=== PATIENT | male | born 1960 | race Caucasian/White ===

== ENCOUNTER 2023-05-23 19:24 | Emergency (ER) | payer SELFPAY ==
[2023-05-23] VITALS (9 sets, daily range): BP systolic 99–177; BP diastolic 59–99; PULSE 3–67; RESP 14–20; TEMP 36.6; O2SAT 97–100
--- NOTE | 2023-05-23 19:37 | XR_ITS ---
The [address] [address] Patient Name: JEANNETTE MARTIN MRN: [id number] date: 1960 Sex: M Assigned Patient Location: ER Current Patient Location: ED.MAIN Accession/Order Number: [id number] Exam Date: 05/23/2023 19:40 Report Date: 05/23/2023 20:19 At the request of: ALLI PANTOJA Procedure: XR chest 1V EXAM: XR chest 1V HISTORY: . chest pain . COMPARISON: None. TECHNIQUE: Single view of the chest FINDINGS: Heart and vascularity are unremarkable. Lungs are free of focal infiltrates. EKG leads overlie the chest. XR/XR chest 1V IMPRESSION: No acute heart or lung disease identified. Electronically authenticated by: NIKOLAS NETTLES Date: 05/23/2023 20:19
--- NOTE | 2023-05-23 19:39 | ED.CHESTPAI1 ---
HPI - Chest Pain General Chief Complaint: Abdominal Pain Stated Complaint: UPPER ABDOMINAL PAIN, READIATING TO BACK Time Seen by Provider: 05/23/23 19:29 Source: patient Mode of arrival: walk-in Limitations: no limitations History of Present Illness HPI narrative: presents with acute onset of left lower anterior chest pain. Mild nausea. Pain into his back and he feels short of breath. Started about 2 hours ago. Nonsmoker. no diaphoresis. No past history of similar pains MD complaint: Reports chest pain Risk Factors Coronary artery disease risk factors: none Related Data Home Medications Medication Instructions Recorded Confirmed No Known Home Medications 05/23/23 05/23/23 Allergies Allergy/AdvReac Type Severity Reaction Status Date / Time No Known Drug Allergies Allergy Verified 05/23/23 19:37 Review of Systems ROS Status of ROS 10 or more systems reviewed and unremarkable except as noted in history and below [facility] Social History Smoking status: Never smoker Exam Constitutional Vital Signs, click to edit/add: Last Vital Signs Temp 97.9 F 05/23/23 19:27 Pulse 67 05/23/23 23:35 Resp 20 05/23/23 23:35 BP 99/59 05/23/23 23:35 Pulse Ox 98 05/23/23 23:35 O2 Del Method Room Air 05/23/23 23:35 Common normals: no apparent distress (mild distress from discomfort of his chest), oriented x3, healthy appearing, alert and well nourished Eye Common normals: PERRL, EOMs intact bilaterally and conjunctivae normal Chest Other: mild left chest wall tenderness Respiratory Common normals: normal respiratory effort, no retractions, no use of accessory muscles and clear to auscultation bilaterally Cardio Common normals: no JVD, regular rate, regular rhythm, S1 normal heart sound and S2 normal heart sound GI Common normals: Normal to inspection, nondistended, normoactive bowel sounds present, soft to palpation and non-tender Extremity Common normals: normal to inspection and full ROM Neuro Common normals: oriented x3, CN's II-XII intact bilaterally, moves all extremities, no focal motor deficits and no sensory deficits noted Psych Appearance: grossly normal Course Vital Signs Vital signs: Vital Signs Temperature 97.9 F 05/23/23 19:27 Pulse Rate 67 05/23/23 19:27 Respiratory Rate 16 05/23/23 19:27 Blood Pressure 177/97 H 05/23/23 19:27 Pulse Oximetry 100 05/23/23 19:27 Oxygen Delivery Method Room Air 05/23/23 19:27 Temperature 97.9 F 05/23/23 19:27 Pulse Rate 67 05/23/23 23:35 Respiratory Rate 20 05/23/23 23:35 Blood Pressure 99/59 05/23/23 23:35 Pulse Oximetry 98 05/23/23 23:35 Oxygen Delivery Method Room Air 05/23/23 23:35 MDM - Chest Pain MDM Narrative Medical decision making narrative: patient presents with acute onset of pain epigastric, lower left anterior rib cage, pain into right back associated with nausea and a sensation that he can't take a full breath. Mild epigastric tenderness. No guarding. pain did not improve with nitroglycerin. EKG normal without acute changes. Serial troponin neg. mild elevation of alk phos and lipase. CT with 15mm stone at gallbladder neck and also finding of 13mm cystic lesion in the pancreas. Discussed with monitor and storage bin tender Surgeon Dr Sellers who feels the patient can be follow up with as an out patient particularly now that he is nearly pain free. Maybe 07/22. He is discharged home and given name of GI for followup. He is to return if pain recurs Lab Data Labs: Lab Results 05/23/23 05/23/23 Range/Units 19:35 23:25 WBC 8.3 (4.0-11.0) 10^3/uL RBC 4.85 (4.70-6.10) 10^6/uL Hgb 14.9 (14.0-18.0) g/dL Hct 44.4 (42.0-54.0) % MCV 91.5 (80.0-94.0) fL MCH 30.7 (25.9-34.0) pg MCHC 33.6 (29.9-35.2) g/dL RDW 12.6 (11.0-15.0) % Plt Count 218 (150-450) 10^3/uL MPV 10.3 (9.5-13.5) fL Neut % (Auto) 60.8 (43.0-75.0) % Lymph % (Auto) 27.5 (20.5-60.0) % Andrews % (Auto) 7.7 (1.7-12.0) % Eos % (Auto) 2.5 (0.9-7.0) % Baso % (Auto) 0.7 (0.2-2.0) % Neut # (Auto) 5.0 (1.4-6.5) 10^3/uL Lymph # (Auto) 2.3 (1.2-3.8) 10^3/uL Andrews # (Auto) 0.6 (0.3-0.8) 10^3/uL Eos # (Auto) 0.2 (0.0-0.7) 10^3/uL Baso # (Auto) 0.1 (0.0-0.1) 10^3/uL Abs Immat Gran (auto) 0.07 H (0.00-0.03) 10^3/uL Imm/Tot Granulo (auto) 0.8 H (0.0-0.5) % D-Dimer 0.26 (<=0.59) mg/L FEU Sodium 138 (136-145) mmol/L Potassium 3.8 (3.5-5.1) mmol/L Chloride 104 (98-107) mmol/L Carbon Dioxide 24.8 (21.0-32.0) mmol/L Anion Gap 13.0 BUN 11.0 (7.0-18.0) mg/dL Creatinine 1.06 (0.70-1.30) mg/dL Est GFR ( Amer) >60 (>=60) Est GFR (Non-Af Amer) >60 (>=60) BUN/Creatinine Ratio 10.4 Glucose 112 H (74-106) mg/dL Calcium 8.8 (8.5-10.1) mg/dL Total Bilirubin 0.3 (0.2-1.0) mg/dL AST 22 (15-37) U/L ALT 35 (16-63) U/L Alkaline Phosphatase 141 H (46-116) U/L Troponin I High Sens 5.6 6.5 (4.0-76.1) pg/mL Total Protein 7.5 (6.4-8.2) g/dL Albumin 3.8 (3.4-5.0) g/dL Globulin 3.7 g/dL Albumin/Globulin Ratio 1.0 Lipase 84.0 H (16.0-77.0) U/L Discharge Plan Discharge Chief Complaint: Abdominal Pain Clinical Impression: Cholelithiasis, Pancreas cyst Patient Disposition: Home, Self-Care Prescriptions / Home Meds: No Action No Known Home Medications Instructions: Gallstones (ED) Additional Instructions: Follow up with Gastroenterology. Return if pain recurs Stand Alone Forms: Portal Instructions Referrals: Physician,Non-Staff, MD [Primary Care Provider] - 1 week Discharge Date/Time: 05/24/23 00:30
[2023-05-23] MEDS: ONDANSETRON PF 4 MG/2 ML VIAL IV (19:53)
[2023-05-23] MEDS: NITROGLYCERIN 0.4 MG BOTTLE PO (19:55)
[2023-05-23 20:05] LABS: Basophils Absolute Auto 0.1 10^3/uL (0.0-0.1); Basophils Percent Auto 0.7 % (0.2-2.0); Eosinophils Absolute Auto 0.2 10^3/uL (0.0-0.7); Eosinophils Percent Auto 2.5 % (0.9-7.0); Hematocrit 44.4 % (42.0-54.0); Hemoglobin 14.9 g/dL (14.0-18.0); Immature Granulocytes Abs Auto 0.07 10^3/uL (0.00-0.03); Immature Granulocytes Pct Auto 0.8 % (0.0-0.5); Lymphocytes Absolute Auto 2.3 10^3/uL (1.2-3.8); Lymphocytes Percent Auto 27.5 % (20.5-60.0); Mean Corpuscular HGB Conc 33.6 g/dL (29.9-35.2); Mean Corpuscular Hemoglobin 30.7 pg (25.9-34.0); Mean Corpuscular Volume 91.5 fL (80.0-94.0); Mean Platelet Volume 10.3 fL (9.5-13.5); Monocytes Absolute Auto 0.6 10^3/uL (0.3-0.8); Monocytes Percent Auto 7.7 % (1.7-12.0); Neutrophils Percent Auto 60.8 % (43.0-75.0); Platelet Count 218 10^3/uL (150-450); Red Blood Count 4.85 10^6/uL (4.70-6.10); Red Cell Distribution Width 12.6 % (11.0-15.0); White Blood Count 8.3 10^3/uL (4.0-11.0)
[2023-05-23] MEDS: MORPHINE SULFATE 4 MG/ML VIAL IV (20:07)
[2023-05-23 20:11] LABS: D Dimer 0.26 mg/L FEU (<=0.59)
--- NOTE | 2023-05-23 20:18 | PC.NURSE ---
199:55 1st Nitro given. He the complained of lightheaded and nausea. B/p retaken had dropped to 127/83 with no change in pain. aware. No further nitro to be given.
[2023-05-23 20:23] LABS: Alanine Aminotransferase 35 U/L (16-63); Albumin Level 3.8 g/dL (3.4-5.0); Alkaline Phosphatase 141 U/L (46-116); Aspartate Amino Transferase 22 U/L (15-37); BUN Creatinine Ratio 10.4; Bilirubin Total 0.3 mg/dL (0.2-1.0); Calcium 8.8 mg/dL (8.5-10.1); Carbon Dioxide 24.8 mmol/L (21.0-32.0); Chloride 104 mmol/L (98-107); Estimated GFR (African America >60 (>=60); Estimated GFR (Non-African Ame >60 (>=60); Globulin 3.7 g/dL; Glucose 112 mg/dL (74-106); Potassium 3.8 mmol/L (3.5-5.1); Sodium 138 mmol/L (136-145); Total Protein 7.5 g/dL (6.4-8.2); Troponin I High Sensitivity 5.6 pg/mL (4.0-76.1)
--- NOTE | 2023-05-23 20:31 | CT_ITS ---
The [address] [address] Patient Name: JEANNETTE MARTIN MRN: [id number] date: 1960 Sex: M Assigned Patient Location: ER Current Patient Location: Accession/Order Number: [id number] Exam Date: 05/23/2023 21:15 Report Date: 05/23/2023 23:51 At the request of: ALLI PANTOJA Procedure: CT angio abdomen pelvis CT ANGIOGRAM CHEST ABDOMEN AND PELVIS WITH CONTRAST: INDICATION: Chest pain. COMPARISON: Chest x-ray 05/23/2023. TECHNIQUE: CT angiography was obtained of the chest, abdomen and pelvis after the administration of intravenous contrast. Noncontrast imaging was not performed. Dose reduction techniques were achieved by using automated exposure control and/or adjustment of mA and/or kV according to patient size and/or use of iterative reconstruction technique. FINDINGS: AORTA/PULMONARY ARTERIES: There is limited evaluation at the aortic root due to cardiac pulsation artifact. There is mild ectasia of the ascending thoracic aorta measuring 4 cm in maximum diameter. The remainder of the aorta is normal in caliber. There is no evidence of aortic dissection. The central pulmonary arteries appear patent. CHEST: HEART/PERICARDIUM: Normal. MEDIASTINAL/HILAR LYMPH NODES: Mildly enlarged bilateral hilar lymph nodes measuring up to 1.3 cm on the left and 1.4 cm on the right. No mediastinal adenopathy. ESOPHAGUS: Normal as visualized. PLEURAL CAVITY: No pleural effusion or pneumothorax. LUNGS/AIRWAYS: There are moderate posterior upper and lower lobe linear opacities suggestive of atelectasis and/or scarring. 4 mm right middle lobe pulmonary nodule, image 65 series 5. 5 mm nodular density near the right minor fissure on image 56, likely a benign subpleural lymph node. 6 mm nodule in the right middle lobe just below the minor fissure which is indeterminate. 4 mm nodule near the right minor fissure on image 58, also likely a lymph node. Punctate nodule in the right middle lobe on image 53. 5 mm nodule in the lingula on image 64. CHEST WALL/AXILLA/LOWER NECK: Normal. ABDOMEN AND PELVIS: LIVER: Normal in size and attenuation. No focal lesions. GALLBLADDER AND BILIARY SYSTEM: 15 mm gallstone in the neck of the gallbladder. SPLEEN: Multiple calcified granulomas. PANCREAS: 13 mm cystic lesion in the mid anterior pancreatic body on image 102 series 4. ADRENAL GLANDS: Normal. KIDNEYS AND URETERS: 1.9 cm right upper pole renal cyst. Left kidney appears unremarkable. VASCULATURE: The aorta is normal in course and caliber. There is mild atherosclerotic calcification of the left common iliac artery. The celiac, superior mesenteric, inferior mesenteric and renal arteries appear patent. RETROPERITONEUM AND LYMPH NODES: Normal, with no lymphadenopathy. GASTROINTESTINAL TRACT/MESENTERY: There is a borderline prominent loop of small bowel in the upper abdomen measuring 2.7 cm diameter with an air-fluid level. Normal mesentery/peritoneum. There is a moderate amount of stool in the distal small bowel and the colon. BLADDER: Normal. REPRODUCTIVE SYSTEM: Normal prostate. BODY WALL: Small fat-containing left inguinal hernia. Small fat-containing umbilical hernia. BONES: There are coarsened trabecula within the left iliac bone and ischium consistent with Paget's disease. There is also involvement of the left sacrum. There are bulky anterior osteophytes throughout the thoracic and lumbar spine with relative lack of disc space narrowing consistent with diffuse idiopathic skeletal hyperostosis or DISH. There is no acute osseous abnormality. CT/CT angio abdomen pelvis IMPRESSION: 1. No acute aortic syndrome. There is mild ascending thoracic aorta ectasia measuring 4 cm. 2. Small pulmonary nodules as described above measuring up to 6 mm. Consider follow-up CT in 12 months. 3. Mild bilateral hilar adenopathy which may be reactive in nature but is nonspecific. 4. Cholelithiasis. 5. Right renal cyst. 6. 13 mm cystic lesion in the pancreas. Recommend follow-up pancreas protocol CT or contrast-enhanced MRI in one year per ACR guidelines. 7. Borderline prominent loop of small bowel in the upper abdomen with an air-fluid level suggestive of mild focal ileus or enteritis. 8. Moderate amount of stool in the distal small bowel and colon. 9. Fat-containing umbilical and left inguinal hernias. 10. Paget's disease in the left sacrum, iliac bone and ischium. Electronically authenticated by: DEBI SEXTON Date: 05/23/2023 23:51
--- NOTE | 2023-05-23 20:46 | CT_ITS ---
The [address] [address] Patient Name: JEANNETTE MARTIN MRN: [id number] date: 1960 Sex: M Assigned Patient Location: ER Current Patient Location: Accession/Order Number: [id number] Exam Date: 05/23/2023 21:15 Report Date: 05/23/2023 23:51 At the request of: ALLI PANTOJA Procedure: CT angio chest CT ANGIOGRAM CHEST ABDOMEN AND PELVIS WITH CONTRAST: INDICATION: Chest pain. COMPARISON: Chest x-ray 05/23/2023. TECHNIQUE: CT angiography was obtained of the chest, abdomen and pelvis after the administration of intravenous contrast. Noncontrast imaging was not performed. Dose reduction techniques were achieved by using automated exposure control and/or adjustment of mA and/or kV according to patient size and/or use of iterative reconstruction technique. FINDINGS: AORTA/PULMONARY ARTERIES: There is limited evaluation at the aortic root due to cardiac pulsation artifact. There is mild ectasia of the ascending thoracic aorta measuring 4 cm in maximum diameter. The remainder of the aorta is normal in caliber. There is no evidence of aortic dissection. The central pulmonary arteries appear patent. CHEST: HEART/PERICARDIUM: Normal. MEDIASTINAL/HILAR LYMPH NODES: Mildly enlarged bilateral hilar lymph nodes measuring up to 1.3 cm on the left and 1.4 cm on the right. No mediastinal adenopathy. ESOPHAGUS: Normal as visualized. PLEURAL CAVITY: No pleural effusion or pneumothorax. LUNGS/AIRWAYS: There are moderate posterior upper and lower lobe linear opacities suggestive of atelectasis and/or scarring. 4 mm right middle lobe pulmonary nodule, image 65 series 5. 5 mm nodular density near the right minor fissure on image 56, likely a benign subpleural lymph node. 6 mm nodule in the right middle lobe just below the minor fissure which is indeterminate. 4 mm nodule near the right minor fissure on image 58, also likely a lymph node. Punctate nodule in the right middle lobe on image 53. 5 mm nodule in the lingula on image 64. CHEST WALL/AXILLA/LOWER NECK: Normal. ABDOMEN AND PELVIS: LIVER: Normal in size and attenuation. No focal lesions. GALLBLADDER AND BILIARY SYSTEM: 15 mm gallstone in the neck of the gallbladder. SPLEEN: Multiple calcified granulomas. PANCREAS: 13 mm cystic lesion in the mid anterior pancreatic body on image 102 series 4. ADRENAL GLANDS: Normal. KIDNEYS AND URETERS: 1.9 cm right upper pole renal cyst. Left kidney appears unremarkable. VASCULATURE: The aorta is normal in course and caliber. There is mild atherosclerotic calcification of the left common iliac artery. The celiac, superior mesenteric, inferior mesenteric and renal arteries appear patent. RETROPERITONEUM AND LYMPH NODES: Normal, with no lymphadenopathy. GASTROINTESTINAL TRACT/MESENTERY: There is a borderline prominent loop of small bowel in the upper abdomen measuring 2.7 cm diameter with an air-fluid level. Normal mesentery/peritoneum. There is a moderate amount of stool in the distal small bowel and the colon. BLADDER: Normal. REPRODUCTIVE SYSTEM: Normal prostate. BODY WALL: Small fat-containing left inguinal hernia. Small fat-containing umbilical hernia. BONES: There are coarsened trabecula within the left iliac bone and ischium consistent with Paget's disease. There is also involvement of the left sacrum. There are bulky anterior osteophytes throughout the thoracic and lumbar spine with relative lack of disc space narrowing consistent with diffuse idiopathic skeletal hyperostosis or DISH. There is no acute osseous abnormality. CT/CT angio chest IMPRESSION: 1. No acute aortic syndrome. There is mild ascending thoracic aorta ectasia measuring 4 cm. 2. Small pulmonary nodules as described above measuring up to 6 mm. Consider follow-up CT in 12 months. 3. Mild bilateral hilar adenopathy which may be reactive in nature but is nonspecific. 4. Cholelithiasis. 5. Right renal cyst. 6. 13 mm cystic lesion in the pancreas. Recommend follow-up pancreas protocol CT or contrast-enhanced MRI in one year per ACR guidelines. 7. Borderline prominent loop of small bowel in the upper abdomen with an air-fluid level suggestive of mild focal ileus or enteritis. 8. Moderate amount of stool in the distal small bowel and colon. 9. Fat-containing umbilical and left inguinal hernias. 10. Paget's disease in the left sacrum, iliac bone and ischium. Electronically authenticated by: DEBI SEXTON Date: 05/23/2023 23:51
[2023-05-23] MEDS: PROMETHAZINE HCL 25 MG/ML VIAL 12.5 MG IV (21:34)
[2023-05-23] MEDS: 0.9 % SODIUM CHLORIDE 1,000 ML 999 ML IV (21:35)
[2023-05-23 23:47] LABS: Troponin I High Sensitivity 6.5 pg/mL (4.0-76.1)
--- NOTE | 2023-05-24 19:36 | ECG_ITS ---
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
== END 2023-05-24 00:30 | disposition home or self-care (01) ==
PROVIDERS: Emergency Provider Internal Medicine
DX: K80.20 Calculus of gallbladder without cholecystitis without obstruction (principal); K86.2 Cyst of pancreas
CPT/HCPCS: 36415; 71045; 71275; 74174; 80053; 83690; 84484; 85025; 85378; 93005; 96374; 96375; 99285; Q9967